=== PATIENT | female | born 2000 | race American Indian/Alaskan Native ===

== ENCOUNTER → 2025-02-11 | Emergency (ER) | payer BC ==
[~2025-02-11] VITALS: Ht 172.7 cm; Wt 97.5 kg
[~2025-02-11] MED LIST: GUAIFENESIN/DEXTROMETHORPHAN 100MG/10ML BLIST.PACK PO ONE; ONDANSETRON HCL 2 MG/ML VIAL ONE; OSEL75CA PO; OSELTAMIVIR PHOSPHATE 75 MG CAPSULE PO ONE; PRILOSEC10 MG; PROAIR RESPICL90 MCG IH; TUSSIN DM LIQU118 ML PO; ZYRTEC10 MG PO
[2025-02-11 17:50] LABS: BASO % 0.3 % (0.1-1.2); EOS # 0.02 (0.04-0.54); EOS % 0.3 % (0.7-7.0); LYMPH # 0.80 (1.18-3.74); LYMPH % 12.3 % (19.3-53.1); MEAN PLATELET VOLUME 9.50 fl (9.4-12.4); MONO # 0.91 (0.24-0.82); NEUT # 4.74 (1.56-6.13); NEUT % 72.8 % (34.0-71.1); RED CELL DISTRIBUTION WIDTH 13.1 % (11.6-14.4)
[2025-02-11 17:52] LABS: MONO % 14.0 % (4.7-12.5)
[2025-02-11 18:21] LABS: COVID-19 AG NEGATIVE (NEGATIVE)
== END | disposition home or self-care (01) ==
LOC: ER 16:38
PROVIDERS: Preventive Medicine Public Health & General Preventive Medicine
DX: J10.1 Influenza due to other identified influenza virus with other respiratory manifestations (principal); Z20.822 Contact with and (suspected) exposure to COVID-19; Z88.8 Allergy status to other drugs, medicaments and biological substances; Z87.09 Personal history of other diseases of the respiratory system